=== PATIENT | female | born 1960 | race Caucasian/White ===

== ENCOUNTER → 2017-05-28 | Outpatient (CLI) | payer BC ==
[2017-05-28 11:07] LABS: BUN 13 mg/dL (7-18)
[2017-05-28 11:50] LABS: GFR (ESTIMATED) 103 ML/MIN (59-)
[2017-05-29 08:44] LABS: Vitamin D, 25-Hydroxy 16.9 ng/mL (30.0-100.0)
[2017-05-29 16:37] LABS: Insulin 7.1 uIU/mL (2.6-24.9)
[2017-06-03 16:41] LABS: Reverse T3 17.1 ng/dL (9.2-24.1)
== END ==
LOC: LAB 08:52
PROVIDERS: Family Medicine
DX: R63.5 Abnormal weight gain (principal); E34.9 Endocrine disorder, unspecified